=== PATIENT | female | born 1950 | race Caucasian/White ===

== ENCOUNTER 2017-06-04 16:01 | Emergency (ER) | payer OTHER ==
[~2017-06-04] VITALS: Ht 160 cm; Wt 108.0 kg
[~2017-06-04 16:01] MED LIST: ACTOS45 MG PO; ACYCLOVIR400 MG PO; AMLODIPINE BESYL5 MG PO; CIPRO500 MG PO; CREON PO; CYANOCOBALAM1000 MCG PO; DICLOFENAC SOD100 MG PO; FOSINOPRIL SODI10 MG PO; GLIPIZIDE ER2.5 M1 PO; GLIPIZIDE ER2.5 MG PO; GLUCOPHAGE XR,500 MG PO; Glucophage PO; INDERAL LA80 MG PO; INDERAL80 MG PO; Inderal LA PO; LOFIBRA134 MG PO; Levaquin PO; METFORMIN HCL500 MG PO; MONOPRIL10 MG PO; Monopril PO; NAPROXEN500 MG PO; NORVASC5 MG PO; Norvasc PO; OMEPRAZOLE40 M1 PO; SIMVASTATIN40 M1 PO; SIMVASTATIN40 MG PO; TRAMADOL HCL50 MG PO; TRICOR145 MG PO; ULTRAM50 MG PO; VITAMIN B-625 MG PO; Zocor PO; Zovirax PO
[2017-06-04 17:25] LABS: MCHC 34.1 G/DL (30.0-36.0); MCV 90.9 FL (83-99); MEAN PLAT.VOLUME 9.8 uM^3 (9.5-12.4); PLATELET COUNT 290 K/uL (156-360); RBC DIS.WIDTH-CV 13.1 % (11.8-14.6); RBC DIS.WIDTH-SD 42.8 % (39-53); RED BLOOD COUNT 4.07 M/uL (3.80-5.20); WHITE BLOOD COUNT 12.4 K/uL (4.1-10.2)
[2017-06-04 17:31] LABS: CHLORIDE 105 mEq/L (99-109); SODIUM 140 mEq/L (136-147)
[2017-06-04 17:33] LABS: GLUCOSE 231 mg/dL (70-99)
[2017-06-04 17:34] LABS: ANION GAP 15 MEQ/L (2-14)
[2017-06-04 17:35] LABS: TOTAL BILIRUBIN 0.7 mg/dL (0.0-1.0)
[2017-06-04 17:36] LABS: ALKALINE PHOSPHATASE 83 IU/L (3-129)
[2017-06-04 17:37] LABS: GFR ESTIMATE (CALCULATED) 30 mL/min/
[2017-06-04 17:38] LABS: DIRECT BILIRUBIN 0.3 mg/dL (0.0-0.3); UREA NITROGEN (BUN) 21 mg/dL (9-23)
[2017-06-04 17:40] LABS: LIPASE 9 U/L (1.0-51.0)
[2017-06-04] MEDS ORDERED: MIRALAX255 GM PO (19:25)
[2017-06-04 20:03] VITALS: BP 145/91
== END 2017-06-04 20:05 | disposition home or self-care (01) ==
LOC: EME 16:01
PROVIDERS: Emergency Medicine
DX: R10.84 Generalized abdominal pain (principal); K59.00 Constipation, unspecified; C85.90 Non-Hodgkin lymphoma, unspecified, unspecified site; E11.9 Type 2 diabetes mellitus without complications; K21.9 Gastro-esophageal reflux disease without esophagitis; Z90.49 Acquired absence of other specified parts of digestive tract; I10 Essential (primary) hypertension
CPT/HCPCS: 74176; 80048; 80076; 81003; 83690; 85027; 99281; 99285; J2405; J7030

== ENCOUNTER 2017-07-04 21:47 | Inpatient (IN) | payer OTHER ==
[~2017-07-04] VITALS: Ht 160 cm; Wt 109.0 kg
[~2017-07-04 21:47] MED LIST changes: +FENOFIBRATE54 M1 PO; +JANUMET 50/11 TABLET PO; -LOFIBRA134 MG PO; +LORTAB 5-325 M1 EACH PO; +LOTREL 10/41 CAPSULE PO; +MIRALAX255 GM PO; -NORVASC5 MG PO; +VICTOZA 2-0.6 MG/0.1 SC; +VITAMIN D31000 UNI2 PO
[2017-07-05 08:10] LABS: POINT-OF-CARE METER ID UU13113819
[2017-07-05 08:15] VITALS: BP 174/72
[2017-07-05 12:17] LABS: POINT-OF-CARE METER ID UU13113675
[2017-07-05 12:55] VITALS: BP 197/84
[2017-07-05 15:00] VITALS: BP 151/87
[2017-07-05 17:00] VITALS: BP 155/70
[2017-07-05 17:00] LABS: POINT-OF-CARE METER ID UU13113712
[2017-07-05 19:00] VITALS: BP 157/70
[2017-07-05 21:08] VITALS: BP 137/74
[2017-07-05 23:59] LABS: POINT-OF-CARE METER ID UU13113712
[2017-07-06 00:22] VITALS: BP 130/68
[2017-07-06 03:49] VITALS: BP 174/77
[2017-07-06 06:10] LABS: HEMATOCRIT 31.1 % (36.0-46.0); MCV 96.6 FL (83-99)
[2017-07-06 06:34] LABS: ANION GAP 7 MEQ/L (2-14); CHLORIDE 104 MEQ/L (99-109); GFR ESTIMATE (CALCULATED) 37 mL/min/; GLUCOSE 215 mg/dL (70-99); POTASSIUM 4.8 MEQ/L (3.7-5.4); SAMPLE HEMOLYSIS CHECK 0; SAMPLE ICTERIC CHECK 0; SAMPLE LIPEMIA CHECK 0; SODIUM 140 MEQ/L (136-147); UREA NITROGEN (BUN) 24 mg/dL (9-23)
[2017-07-06 07:39] VITALS: BP 148/60
[2017-07-06 08:13] LABS: POINT-OF-CARE METER ID UU13113712
[2017-07-06 11:43] LABS: POINT-OF-CARE METER ID UU13113712
[2017-07-06 11:55] VITALS: BP 131/78
[2017-07-06 16:12] VITALS: BP 133/60
[2017-07-06 16:23] LABS: POINT-OF-CARE METER ID UU13113712
[2017-07-06 20:21] VITALS: BP 159/71
[2017-07-06 22:10] LABS: POINT-OF-CARE METER ID UU13113712
[2017-07-07 00:04] VITALS: BP 158/67
[2017-07-07 04:00] VITALS: BP 161/71
[2017-07-07 06:53] LABS: HEMATOCRIT 29.1 % (36.0-46.0); MCV 94.2 FL (83-99)
[2017-07-07 07:16] LABS: ANION GAP 8 MEQ/L (2-14); CHLORIDE 107 MEQ/L (99-109); GFR ESTIMATE (CALCULATED) 47 mL/min/; GLUCOSE 195 mg/dL (70-99); POTASSIUM 4.1 MEQ/L (3.7-5.4); SAMPLE HEMOLYSIS CHECK 0; SAMPLE ICTERIC CHECK 0; SAMPLE LIPEMIA CHECK 0; SODIUM 139 MEQ/L (136-147); UREA NITROGEN (BUN) 22 mg/dL (9-23)
[2017-07-07 07:54] VITALS: BP 176/80
[2017-07-07] MEDS ORDERED: ELIQUIS2.5 MG PO (09:40)
[2017-07-07] MEDS ORDERED: OXYCODONE HCL5 MG PO (09:40)
[2017-07-07] MEDS ORDERED: CELECOXIB200 MG PO (09:40)
[2017-07-07 11:28] LABS: POINT-OF-CARE METER ID UU13113712
[2017-07-07 11:45] VITALS: BP 164/76
== END 2017-07-07 14:11 | DRG 470 ==
LOC: ENRESERV 21:47 → 2SOUTH 07-05 07:38 → 3WEST 07-05 12:32
PROVIDERS: Orthopaedic Surgery
PROC: 0SRD0J9 Replacement of Left Knee Joint with Synthetic Substitute, Cemented, Open Approach (ICD-10-PCS; principal; 2017-07-05)
DX: M17.12 Unilateral primary osteoarthritis, left knee (principal); E66.01 Morbid (severe) obesity due to excess calories; Z68.41 Body mass index [BMI] 40.0-44.9, adult
CPT/HCPCS: 80048; 82948; 85014; 85018; 94799; C1713; J0131; J0690; J1100; J1815; J1885; J2250; J2405; J2795; J3010; J7030; J7050; J7120